=== PATIENT | male | born 1965 | race Caucasian/White ===

== ENCOUNTER 2024-04-12 08:53 | Day surgery (SDC) | payer OTHER ==
[~2024-04-12] VITALS: Ht 175.3 cm; Wt 97.5 kg
[2024-04-12] MEDS ORDERED: FAMOTIDINE 10MG/ML 2ML SDV IV ONE (09:17)
[2024-04-12] MEDS ORDERED: LACTATED RINGER'S 1,000 ML IV ONE (09:17)
[2024-04-12 10:52] VITALS: BP 129/77
[2024-04-12] MEDS ORDERED: GLYCOPYRROLATE 0.2 MG/ML IV ONE (14:29)
[2024-04-12] MEDS ORDERED: LIDOCAINE HCL 2% 2ML SDV IV ONE (14:29)
[2024-04-12] MEDS ORDERED: PROPOFOL 200 MG/20 ML VIAL IV ONE (14:29)
== END 2024-04-12 11:10 | disposition home or self-care (01) | DRG 392 ==
LOC: ENDO 08:53 → ORM 09:10 → ENDO 09:10 → ORM 10:05 → ENDO 11:10
PROVIDERS: ATTEND Internal Medicine Gastroenterology
PROC: 0D758ZZ Dilation of Esophagus, Via Natural or Artificial Opening Endoscopic (ICD-10-PCS; principal; 2024-04-12)
PROC: 0DB98ZX Excision of Duodenum, Via Natural or Artificial Opening Endoscopic, Diagnostic (ICD-10-PCS; 2024-04-12)
PROC: 0DB78ZX Excision of Stomach, Pylorus, Via Natural or Artificial Opening Endoscopic, Diagnostic (ICD-10-PCS; 2024-04-12)
PROC: 0DB28ZX Excision of Middle Esophagus, Via Natural or Artificial Opening Endoscopic, Diagnostic (ICD-10-PCS; 2024-04-12)
PROC: 0DB38ZX Excision of Lower Esophagus, Via Natural or Artificial Opening Endoscopic, Diagnostic (ICD-10-PCS; 2024-04-12)
DX: K22.2 Esophageal obstruction (principal); K29.70 Gastritis, unspecified, without bleeding; K31.89 Other diseases of stomach and duodenum; K44.9 Diaphragmatic hernia without obstruction or gangrene; K21.9 Gastro-esophageal reflux disease without esophagitis; G47.30 Sleep apnea, unspecified; F17.220 Nicotine dependence, chewing tobacco, uncomplicated